=== PATIENT | male | born 1950 | race Caucasian/White ===

== ENCOUNTER 2019-08-28 09:01 | Outpatient (RCR) | payer MEDICARE, OTHER, SELFPAY | END 2019-11-07 13:07 | disposition home or self-care (01) | LOC: PT 09:01 | DX: Z95.1 Presence of aortocoronary bypass graft (principal) | CPT/HCPCS: 93798 ==

== ENCOUNTER → 2019-10-25 10:19 | Outpatient (CLI) | payer MEDICARE, OTHER, SELFPAY ==
--- NOTE | 2019-10-25 10:37 | ECG_ITS ---
APPROVED REPORT Exam: Resting ECG HR:60 bpm ECG Measurements Heart Rate 60 AXES OK 222 P 20 QRSd 80 QRS 39 QT 454 T 59 QTc 454 <Conclusion> Sinus rhythm with 1st degree AV block Otherwise normal ECG Electronically signed by : Fuentes Bradley, 10/28/2019 07:06:39
== END ==
PROVIDERS: PCP Internal Medicine; Visit Provider Internal Medicine Cardiovascular Disease
DX: I48.0 Paroxysmal atrial fibrillation (principal)
CPT/HCPCS: 93005